=== PATIENT | female | born 1930 | race Two or more races ===

== ENCOUNTER 2020-04-22 12:26 | Inpatient (IN) | payer OTHER ==
[~2020-04-22] VITALS: Ht 152.4 cm; Wt 49.9 kg
== END 2020-04-26 17:00 | disposition home or self-care (01) | DRG 394 ==
LOC: SURH 12:26
PROVIDERS: ADMIT Surgery; ATTEND Surgery
PROC: 0DH63UZ Insertion of Feeding Device into Stomach, Percutaneous Approach (ICD-10-PCS; principal; 2020-04-24)
DX: K94.23 Gastrostomy malfunction (principal); E46 Unspecified protein-calorie malnutrition; E86.0 Dehydration; R13.19 Other dysphagia; F03.90 Unspecified dementia, unspecified severity, without behavioral disturbance, psychotic disturbance, mood disturbance, and anxiety; E87.6 Hypokalemia
CPT/HCPCS: 240

== ENCOUNTER 2020-04-26 19:36 | Emergency (ER) | payer OTHER ==
[~2020-04-26] VITALS: Ht 160 cm; Wt 45.4 kg
== END 2020-04-27 04:00 | disposition expired ==
LOC: ER 19:36
DX: J16.8 Pneumonia due to other specified infectious organisms (principal); I46.8 Cardiac arrest due to other underlying condition; F02.80 Dementia in other diseases classified elsewhere, unspecified severity, without behavioral disturbance, psychotic disturbance, mood disturbance, and anxiety; R13.19 Other dysphagia; E46 Unspecified protein-calorie malnutrition; Z03.818 Encounter for observation for suspected exposure to other biological agents ruled out; Z66 Do not resuscitate; Z93.1 Gastrostomy status